=== PATIENT | male | born 1940 | race Caucasian/White ===

== ENCOUNTER 2024-03-19 22:45 | Emergency (ER) | payer MEDICARE, BC, SELFPAY ==
[2024-03-19 23:03] VITALS: BP 112/61; PULSE 55; RESP 16; TEMP 36.6; O2SAT 99
[2024-03-19 23:10] VITALS: BMI 21.7
[2024-03-20 01:33] LABS: Basophils % (Auto) 0 % (0-2.5); Eosinophils # (Auto) 0.1 Thou/mm3 (0.0-0.5); Eosinophils % (Auto) 2 % (0-10); Hematocrit 35.6 % (41.0-53.0); Hemoglobin 12.1 g/dL (13.5-16.0); Immature Granulocytes % (Auto) 0 % (0-0); Immature Granulocytes Auto 0.01 Thou/mm3 (0.00-0.00); Lymphocytes # (Auto) 2.2 Thou/mm3 (1.0-4.8); Lymphocytes % (Auto) 38 % (10-50); Mean Corpuscular Hemoglobin 30.2 pg (25.0-35.0); Mean Corpuscular Volume 89 fL (80-100); Monocytes # (Auto) 0.4 Thou/mm3 (0.0-0.8); Monocytes % (Auto) 7 % (0-12); Neutrophils # (Auto) 3.1 Thou/mm3 (1.8-7.7); Neutrophils % (Auto) 53 % (37-80); Nucleated Red Blood Cell % 0 /100 WBC (0); Platelet Count 164 Thou/mm3 (140-440); RDW Standard Deviation 47.5 fL (35.1-43.9); Red Blood Count 4.01 Miln/mm3 (4.50-5.90); White Blood Count 5.9 Thou/mm3 (3.8-10.6)
[2024-03-20 01:37] VITALS: BP 162/105; PULSE 74; RESP 16; O2SAT 98
[2024-03-20 01:51] LABS: Alanine Aminotransferase < 7 U/L (10-49); Albumin, Serum 3.5 gm/dL (3.4-4.8); Albumin/Globulin Ratio 1.8 (1.2-2.2); Alkaline Phosphatase 55 U/L (46-116); Anion Gap 5 (7-16); Aspartate Amino Transferase 10 U/L (0-34); BUN/Creatinine Ratio 22 Ratio (12-20); Bilirubin,Total 0.7 mg/dL (0.3-1.2); Blood Urea Nitrogen 20 mg/dL (9-23); Calcium 8.8 mg/dL (8.3-10.6); Calcium (Corrected) 9.2 mg/dL (8.5-10.1); Carbon Dioxide 28.5 mMol/L (20.0-31.0); Chloride 115 mMol/L (98-107); Creatinine (Component) 0.9 mg/dL (0.6-1.3); Estimated Creatinine Clearance 63.8 mL/min (>60); Globulin 1.9 gm/dL (2.3-3.5); Glucose 93 mg/dL (74-106); INR 1.1 (0.9-1.3); Osmolality,Calculated 296 (275-295); Partial Thromboplastin Time 29.4 Seconds (22.0-36.0); Potassium 3.9 mMol/L (3.4-5.1); Prothrombin Time 12.4 Seconds (9.0-12.2); Sodium 148 mMol/L (136-145); Total Protein 5.4 gm/dL (5.7-8.2); eGFR > 60 See Note
[2024-03-20] MEDS: TRANEXAMIC ACID INJ 1,000 MG/10 ML VIAL 1000 MG IV (01:53)
--- NOTE | 2024-03-20 02:30 | EDNOTE_ITS ---
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 Orlando. The patient continued to bleed from the site of the procedure even after applying pressure. As per the caregiver the patient is only on aspirin and he stopped taking his Eliquis long time ago. No history of coagulopathy disorder and no history of similar bleeding in the past. Related Data Home Medications ?Medication ?Instructions ?Recorded ?Confirmed carbidopa 25 mg-levodopa 100 mg 2 tab PO TID 11/25/20 03/10/23 tablet sertraline 25 mg tablet 25 mg PO QDAY 12/01/20 03/10/23 sennosides 8.6 mg tablet (senna) 17.2 mg PO QDAY 08/11/21 03/10/23 fludrocortisone 0.1 mg tablet 0.1 mg PO 1XD 03/10/23 03/10/23 Previous Rx's ?Medication ?Instructions ?Recorded quetiapine 50 mg tablet 50 mg PO QDAY #1 tab 08/13/21 apixaban 5 mg tablet (Eliquis) 5 mg PO BID #60 tabs 03/14/23 midodrine 5 mg tablet 5 mg PO TID 30 days #90 tabs 03/14/23 Allergies Allergy/AdvReac Type Severity Reaction Status Date / Time No Known Allergies Allergy Verified 09/14/22 13:08 Review of Systems Review of Systems Systems Reviewed: All systems reviewed, normal except as documented ED Exam Narrative Physical exam: GEN: Sleeping elderly, with a newly dressed scalp wound with blood oozing thro ugh a thick multilayer's gauze. HEENT: NC/AC, oral mucosa moist, neck supple CVS: RRR, S1-S2 present, no murmurs appreciated RESP: CTAB GI: soft,non distended, non tender, NBS MSK: able to move all 4 limbs, no lower extremity edema SKIN: In evaluation of the wound that is approximately 4 cm in length located in the right side of the forehead, with 4 stitches, clean, oozing of blood from the frontal 3 stitches, the blood is bright in color, no hematoma formed was seen. SUTURE WINDER HAND: CN II-XII and Sensation grossly intact. Course Quality Measures none Orders Category Date Time Status CBC Stat Lab 03/20/24 01:17 Completed Comprehensive Metabolic Panel Stat Lab 03/20/24 01:17 Completed PTT [Partial Thromboplastin Time] Stat Lab 03/20/24 01:17 Completed Prothrombin Time with INR Stat Lab 03/20/24 01:17 Completed Tranexamic Acid Inj Med 03/20/24 01:44 Discontinued 1,000 mg IV X1 ONE Vital Signs Vital signs: Vital Signs Temperature 97.8 F 03/19/24 23:03 Pulse Rate 55 L 03/19/24 23:03 Respiratory Rate 16 03/19/24 23:03 Blood Pressure 112/61 03/19/24 23:03 Pulse Oximetry (%) 99 03/19/24 23:03 Oxygen Delivery Method Room Air 03/19/24 23:03 Skin / Abscess / Foreign Body MDM Narrative MDM Narrative:: We applied hemostat because, with pressure, however the patient continued to bleed from the wound. For that reason we repeat applying hemostat gauze in addition to tranexamic acid soaked gauze pressure on the wound. I called Dr. Beltrán who did the procedure for the patient and he recommended to ask the patient to follow-up with him in the architecture drafter to have a second look in the wound. Will keep the patient under observation and then will discharge to follow-up with Dr. Beltrán to evaluate the wound. Dr. Munson's note: I concur with the resident's assessment and procedure to stop the bleeding. Patient will be discharged home. Patient data External records reviewed:: [facility] previous records and Other (specify) Clinical information provided by:: crane man Social determinants that could affect healthcare access:: mental health Patient has the following chronic illnesses:: Parkinson's Adrenal insufficiency Neurocognitive disorder Mood disorder unspecified Hypertension How is presenting disease/condition affected by chronic disease/condition?: uneffected by Evaluation data The following diagnostics were reviewed and interpreted by me:: lab results, radiology exam(s) and EKG tracing(s) Lab and/or radiology exams considered but not ordered:: None Interpretation Summary: Patient has oozing of blood after squamous cell carcinoma removal from the forehead. No major No major coagulopathy was noticed on his labs., Hemoglobin stable Medications / Prescriptions Medications or Prescriptions considered but not ordered:: None Medication administrations:: Medication Administration History Discontinued Medications Tranexamic Acid (Tranexamic Acid Inj 1,000 Mg/10 Ml Vial) 1,000 mg IV X1 ONE Stop: 03/20/24 01:45 Last Admin: 03/20/24 01:53 Dose: 1,000 mg Documented By: NANCY Comments: Per Dr. Munson. Medication was applied to a 4x4 gauze and applied to wound to the top of the head As above topically. Consultations Consultation(s) initiated? (list below): No Diagnosis Skin/Abscess Differential Diagnosis: other (Bleeding wound) Most likely diagnosis given after review of the tests above:: Bleeding wound Admission Indicated Admission indicated?: not indicated Admission Request Was there a request for admission?: No Disposition Plan Disposition Plan: Discharge Discharge Attestation Discharge Attestation: The patient and all family members were given an opportunity to ask questions and understood the discharge instructions. Discharge instructions specifically effects, indications for sooner follow up or return to the emergency department, and the expected course of current diagnosis. Patient condition: Stable Discharge Plan Plan Patient Disposition: HOME (Self Care) Health Concerns: ? Follow-up with Dr. Beltrán to evaluate the wound again ? Avoid straining ? Hold aspirin for today and resume after seeing Dr. Beltrán and your PCP. Prescriptions/Referrals Prescriptions/Med Rec: No Action carbidopa-levodopa 25-100 mg tablet 2 tab PO TID Patient Comments: TAKE PRESCIBED UP TO 15 TABS PER DAYS. sertraline 25 mg Tablet 25 mg PO QDAY sennosides [senna] 8.6 mg Tablet 17.2 mg PO QDAY quetiapine 50 mg tablet 50 mg PO QDAY Qty: 1 0RF fludrocortisone 0.1 mg Tablet 0.1 mg PO 1XD midodrine 5 mg Tablet 5 mg PO TID 30 Days Qty: 90 2RF Eliquis 5 mg tablet 5 mg PO BID Qty: 60 0RF Problem List Clinical Impression: Bleeding from wound, Post-op bleeding Patient/Caregiver Discharge Instructions Print Language: Yoruba Stand Alone Forms: Wanda Award Info., Patient Portal Info Letter
[2024-03-20 03:55] VITALS: BP 178/87; PULSE 61; RESP 16; TEMP 36.6; O2SAT 99
== END 2024-03-20 03:55 | disposition home or self-care (01) ==
LOC: SERX 03-20 03:58
PROVIDERS: Emergency Provider Emergency Medicine
DX: L76.22 Postprocedural hemorrhage of skin and subcutaneous tissue following other procedure (principal); Y83.8 Other surgical procedures as the cause of abnormal reaction of the patient, or of later complication, without mention of misadventure at the time of the procedure
CPT/HCPCS: 36415; 80053; 85025; 85610; 85730; 99283; J3490

== ENCOUNTER 2024-05-21 00:02 | Emergency (ER) | payer MEDICARE, BC, SELFPAY ==
--- NOTE | 2024-05-21 00:06 | PD.EDSOB ---
ED SOB =RME/HPI General Chief Complaint: Shortness of Breath/Dyspnea Stated Complaint: SOB Time Seen by Provider: 05/21/24 00:09 Source: EMS and other (heater installer) Arrival date/time: 05/21/24 00:02 Mode of arrival: EMS Limitations: other (non-verbal secondary to neurological disorders) RME / HPI RME / HPI Narrative: Dr. Dowling?s Main ED Evaluation: An 83-year-old male with a history significant for Parkinson?s disease was brought to the emergency department via ambulance for evaluation of shortness of breath. According to his heater installer, the patient, who is non-verbal at baseline, receives nebulizer treatments every morning as part of his routine care. The heater installer reports that today?s episode of shortness of breath appeared more pronounced than usual, prompting the decision to seek emergency medical attention. She denies any associated symptoms such as fever, chills, chest pain, wheezing, or changes in sputum production. The patient has no known recent exposure to illness. His baseline functional status includes limited mobility and full dependence on caregivers for daily activities. Related Data Home Medications ?Medication ?Instructions ?Recorded ?Confirmed carbidopa 25 mg-levodopa 100 mg 2 tab PO TID 11/25/20 03/10/23 tablet sertraline 25 mg tablet 25 mg PO QDAY 12/01/20 03/10/23 sennosides 8.6 mg tablet (senna) 17.2 mg PO QDAY 08/11/21 03/10/23 fludrocortisone 0.1 mg tablet 0.1 mg PO 1XD 03/10/23 03/10/23 Previous Rx's ?Medication ?Instructions ?Recorded quetiapine 50 mg tablet 50 mg PO QDAY #1 tab 08/13/21 apixaban 5 mg tablet (Eliquis) 5 mg PO BID #60 tabs 03/14/23 midodrine 5 mg tablet 5 mg PO TID 30 days #90 tabs 03/14/23 levofloxacin 500 mg tablet 500 mg PO Q24H #5 tabs 05/21/24 oseltamivir 75 mg capsule (Tamiflu) 75 mg PO Q12H 5 days #10 caps 05/21/24 Allergies Allergy/AdvReac Type Severity Reaction Status Date / Time No Known Allergies Allergy Verified 09/14/22 13:08 Review of Systems Review of Systems ROS Unobtainable: unobtainable due to mental status and unobtainable due to medical condition Past Medical History Past Medical History NEUROLOGIC: Positive Neurological Disorders, Dementia, Parkinson's Disease, Seizures and Subdural Hematoma CARDIAC: Positive Cardiac Disorders, Atrial Fibrillation and Hypertension; Negative Congestive Heart Failure RESPIRATORY: Negative Chronic Obstructive Pulmonary Disease (COPD) GASTROINTESTINAL: Negative Gastrointestinal Disorders GENITOURINARY: Negative Genitourinary Disorders or Renal Disease MUSCULOSKELETAL: Negative Musculoskeletal Disorders ENDOCRINE: Negative Endocrine Disorders, Diabetes Mellitus Type 1 or Diabetes Mellitus Type 2 HEMATOLOGIC: Negative Blood Disorders PSYCHO/SOCIAL: Positive Depression OTHER HISTORY: Positive Falls and Chicken Pox; Negative Hospitalization, Shingles, Blood Transfusions, Blood Transfusion Reaction, Anesthesia Reactions, Chemotherapy or Radiation Therapy Family History FAMILY HISTORY: Positive Family Cancer; Negative Family Cardiac Disorders Surgical History SURGICAL: Positive Tonsillectomy Social History SMOKING STATUS: Smoker, status unknown SUBSTANCE USE: does not use ED Exam Narrative Physical exam: GENERAL APPEARANCE: Non-verbal, tremulous, no acute distress. HEENT: NC, AT. MMM. EOMI, clear conjunctiva, oropharynx clear. NECK: Supple without lymphadenopathy. No stiffness or restricted ROM. HEART: Tachycardic, normal S1/S1, no m/r/g LUNGS: Expiratory wheezing and coarse rhonchi in all lung mcpherson ABDOMEN: Soft, nontender, nondistended with good bowel sounds heard. BACK: No midline C/T/L spine pain or deformity, No CVAT, no obvious deformity. EXTREMITIES: Without cyanosis, clubbing or edema. MUSCULOSKELETAL: FROM of all major joints, no chest tenderness NEUROLOGICAL: Grossly nonfocal. Alert and oriented, moving all 4 extremities. CN not formally tested but appear grossly intact. Observed to ambulate with normal gait. Skin: Warm and dry without any rash. General Limitations: Present other (non-verbal secondary to neurological disorders) Course Course Course Narrative: CXR is ordered for determining etiology of shortness of breath. 0041 Sepsis alert initiated. Orders made at this time are congruent with ED Adult Sepsis Order List. Re-evaluation is to be completed. 0101 Sepsis reassessment performed consisting of lab review, vitals, physical exam including auscultation of heart, lungs, and visual evaluation of capillary refills, mucosal membranes and extremities. Sepsis has been ruled out. 0130 Re-evaluated. Patient is Flu A+ 0200 Re-evaluated. Patient is doing much better on room air with oxygen saturations at 97%. I will prescribe Tamiflu, Levaquin and Albuterol q 6 hours for 3 days. WBC is WNL. Not true sepsis. Quality Measures Current suspected stage: sepsis Possible source: unknown Blood cultures ordered: yes Antibiotic ordered: Yes Pertinent labs: 05/21/24 00:49 Lactic Acid 2.1 H mMol/L (0.4-2.0) Procalcitonin 0.16 ng/ml (0.0-0.49) sepsis Orders Category Date Time Status Bedside COVID-19 Antigen Test NOW Care 05/21/24 00:35 Completed Bedside Influenza A&B Antigen Test NOW Care 05/21/24 00:35 Completed EKG (ED ONLY) *Do not use* NOW Care 05/21/24 00:35 Completed Insert IV NOW Care 05/21/24 00:35 Completed EKG (ED Only) Stat Exams 05/21/24 00:35 Ordered XR chest 1V Stat Exams 05/21/24 00:35 Taken Blood Culture (Lab) Stat Lab 05/21/24 00:55 Received CBC Stat Lab 05/21/24 00:49 Completed CMP [Comprehensive Metabolic Panel] Stat Lab 05/21/24 00:49 Completed Lactate (Lactic Acid) Stat Lab 05/21/24 00:49 Completed Partial Thromboplastin Time Stat Lab 05/21/24 00:49 Completed Procalcitonin Stat Lab 05/21/24 00:49 Completed Prothrombin Time with INR Stat Lab 05/21/24 00:49 Completed RSV [Respiratory Syncytial Virus Ag] Stat Lab 05/21/24 01:10 Completed Troponin I Stat Lab 05/21/24 00:49 Completed ALBUTEROL RT 3ml [Proventil Rt 3ml] Med 05/21/24 00:34 Discontinued 2.5 mg INH X1 ONE MethylPREDNISolone.* [SoluMEDROL Inj] Med 05/21/24 00:49 Discontinued 125 mg IVP X1 ONE Oseltamivir [Tamiflu] Med 05/21/24 01:26 Discontinued 75 mg PO X1 ONE Sodium Chloride 0.9% 1000 ml [Ns] 1,000 ml Med 05/21/24 00:34 Discontinued IV 999 mls/hr Sodium Chloride 0.9% 1000 ml [Ns] 1,000 ml Med 05/21/24 00:49 Discontinued IV 999 mls/hr cefTRIAXone/D5w 1gm IV premix [Rocephin/D5w 1gm IV Med 05/21/24 00:49 Discontinued premix] 50 ml IV X1 metroNIDAZOLE/NS 500 MG IVPB [Flagyl 500 mg IV] Med 05/21/24 00:50 Discontinued 500 mg in 100 ml IV X1 Vital Signs Vital signs: Vital Signs Temperature 100.1 F 05/21/24 00:14 Pulse Rate 103 H 05/21/24 00:14 Respiratory Rate 20 05/21/24 00:14 Blood Pressure 135/69 H 05/21/24 00:14 Pulse Oximetry (%) 96 05/21/24 00:14 Oxygen Delivery Method Nasal Cannula 05/21/24 00:14 Oxygen Flow Rate 6 05/21/24 00:14 Procedures -ED Procedure Comment 05/21/2024 0247: Interpreted by me, limited due to movement artifact secondary to parkinson's, normal sinus rhythm at 88 bpm, normal intervals, normal axis, no acute ST or T wave changes. Shortness of Breath / Dyspnea MDM Narrative MDM Narrative:: Mr. Rhoades has advanced Parkinson's who presents with fever and shortness of breath. Patient is otherwise nontoxic appearing, However limited history given he is not verbal which is baseline per the caretakers.they expressed concern as he has been having increasing respiratory congestion and fevers therefore sent him to the emergency department. Patient otherwise shows no signs of tachypnea or hypoxia on room air. He does have some coarse rhonchi and end expiratory wheezes on exam therefore he was started on steroids and nebulized bronchodilators given his home use of bronchodilators and possible risk of aspiration pneumonia. Chest x-ray initial troponin shows some perihilar fullness including the right middle lobe which could be an early aspiration, however when compared to previous x-ray there shows no changes (compared with September 29, 2023). Laboratory testing is unremarkable and significant for normal white blood cell count, normal lactic acid, and normal procalcitonin. Swabs however was significant for positive influenza A status. He is bedbound I do not suspect he has epidemiologic contact criteria as suggestive of HPAI. As a result we will start him on Tamiflu and have him receive his nebulized bronchodilators every 6 hours at home with his caretakers. Given his risk with his Parkinson's still for aspiration pneumonia will complete covering empirically with Levaquin. As he is stable vital signs, is nontoxic-appearing, has good and viable caretakers, he is appropriate for outpatient management and close follow-up with his primary care physician Scribe Attestation: I, Kareem Giron, am scribing for and in the presence of Dr. Dowling. Provider Notation: Although this document has been carefully reviewed, there may still be some phonetic and other typographical errors. These errors are purely grammatical due to imperfections in the software program and should not be construed in any way to compromise the substance of the patient's medical care during this visit. Patient data External records reviewed:: [facility] previous records and EMS form Clinical information provided by:: patient and EMS Social determinants that could affect healthcare access:: none Patient has the following chronic illnesses:: See PMH How is presenting disease/condition affected by chronic disease/condition?: uneffected by Evaluation data The following diagnostics were reviewed and interpreted by me:: lab results, radiology exam(s) and EKG tracing(s) Lab and/or radiology exams considered but not ordered:: n/a Interpretation Summary: See narrative Medications / Prescriptions Medications or Prescriptions considered but not ordered:: n/a Medication administrations:: Medication Administration History Discontinued Medications Albuterol (Albuterol Rt 2.5 Mg/3 Ml Nebu) 2.5 mg INH X1 ONE Stop: 05/21/24 00:35 Last Admin: 05/21/24 02:20 Dose: 2.5 mg Documented By: Sodium Chloride (Ns) 1,000 mls @ 999 mls/hr IV .Q1H1M ONE Stop: 05/21/24 01:34 Last Infusion: 05/21/24 02:14 Dose: Infused Documented By: Admin: 05/21/24 00:54 Dose: 999 mls/hr Documented By: EF Sodium Chloride (Ns) 1,000 mls @ 999 mls/hr IV .Q1H1M ONE Stop: 05/21/24 01:49 Last Infusion: 05/21/24 03:30 Dose: Infused Documented By: Admin: 05/21/24 02:01 Dose: 999 mls/hr Documented By: EF Ceftriaxone Sodium/Dextrose (Rocephin/D5w 1gm Iv Premix) 50 mls @ 100 mls/hr IV X1 ONE Stop: 05/21/24 01:18 Last Infusion: 05/21/24 01:34 Dose: Infused Documented By: Admin: 05/21/24 00:58 Dose: 100 mls/hr Documented By: EF Metronidazole (Flagyl 500 Mg Iv) 500 mg in 100 mls @ 200 mls/hr IV X1 ONE Stop: 05/21/24 01:19 Last Infusion: 05/21/24 02:07 Dose: Infused Documented By: Admin: 05/21/24 01:27 Dose: 200 mls/hr Documented By: EF Methylprednisolone Sodium Succinate (Methylprednisolone Sod Succ 62.5 Mg/Ml 2ml Vial) 125 mg IVP X1 ONE Stop: 05/21/24 00:50 Last Admin: 05/21/24 00:59 Dose: 125 mg Documented By: EF Oseltamivir Phosphate (Oseltamivir 75 Mg Capsule) 75 mg PO X1 ONE Stop: 05/21/24 01:27 Last Admin: 05/21/24 02:01 Dose: 75 mg Documented By: EF as above, if any Consultations Consultation(s) initiated? (list below): No Diagnosis Shortness of Breath Differential Diagnosis: acute exacerbation of chronic obstructive airways disease, asthma with exacerbation and other (Aspiration pneumonia, Sepsis) Most likely diagnosis given after review of the tests above:: Influenza A, RAD (reactive airway disease), Parkinson's disease dementia Admission Indicated Admission indicated?: not indicated Admission Request Was there a request for admission?: No Disposition Plan Disposition Plan: Discharge Discharge Attestation Discharge Attestation: The patient and all family members were given an opportunity to ask questions and understood the discharge instructions. Discharge instructions specifically effects, indications for sooner follow up or return to the emergency department, and the expected course of current diagnosis. Patient condition: Stable Discharge Plan Plan Patient Disposition: HOME (Self Care) Prescriptions/Referrals Prescriptions/Med Rec: New oseltamivir [Tamiflu] 75 mg capsule 75 mg PO Q12H 5 Days Qty: 10 0RF levofloxacin 500 mg tablet 500 mg PO Q24H Qty: 5 0RF No Action carbidopa-levodopa 25-100 mg tablet 2 tab PO TID Patient Comments: TAKE PRESCIBED UP TO 15 TABS PER DAYS. sertraline 25 mg Tablet 25 mg PO QDAY sennosides [senna] 8.6 mg Tablet 17.2 mg PO QDAY quetiapine 50 mg tablet 50 mg PO QDAY Qty: 1 0RF fludrocortisone 0.1 mg Tablet 0.1 mg PO 1XD midodrine 5 mg Tablet 5 mg PO TID 30 Days Qty: 90 2RF Eliquis 5 mg tablet 5 mg PO BID Qty: 60 0RF Referrals: No Primary/Family,Physician [Primary Care Provider] - In 1 week Problem List Clinical Impression: Influenza A, RAD (reactive airway disease), Parkinson's disease dementia Patient/Caregiver Discharge Instructions Education Materials: ED Influenza (Adult), ED URI, Viral W/ Wheezing (Adult) Additional Instructions: Use your nebulizer 1 treatment every 6 hours while awake for the next 3 days. Follow-up with your primary care doctor in 2 to 3 days for recheck. You can return to the emergency department sooner symptoms worsen or if you notice any new, concerning issues. Print Language: Maltese Stand Alone Forms: Wanda Award Info., Patient Portal Info Letter
[2024-05-21 00:14] VITALS: BP 135/69; PULSE 103; RESP 20; TEMP 37.8; O2SAT 96
[2024-05-21 00:24] VITALS: PULSE 105; RESP 20; O2SAT 94
--- NOTE | 2024-05-21 00:35 | XR_ITS ---
Examination: AP chest single view Technique one AP portable upright chest single view Exam date and time: May 21, 2024 at 0042 hrs. Comparison the 2023 Indications: Shortness of breath today. Findings: Prominent opacity left base retrocardiac obscuring detail left hemidiaphragm Moderate vascular congestion No siria pulmonary edema Significant osteopenia Impression: Significant parenchymal disease left base, recommend lateral chest view follow-up
[2024-05-21 00:42] VITALS: TEMP 38.4
[2024-05-21 00:48] VITALS: BMI 21.8
[2024-05-21] MEDS: SODIUM CHLORIDE 0.9% 1000 ML 1,000 ML 999 ML IV ×2 (00:54→02:01)
[2024-05-21] MEDS: cefTRIAXone/D5w 1gm IV premix 50 ML IV (00:58)
[2024-05-21] MEDS: MethylPREDNISolone SOD SUCC 62.5 MG/ML 2ML VIAL 125 MG IVP (00:59)
[2024-05-21 01:07] LABS: Lactate (Lactic Acid) 2.1 mMol/L (0.4-2.0)
[2024-05-21 01:10] LABS: Basophils % (Auto) 0 % (0-2.5); Eosinophils # (Auto) 0.1 Thou/mm3 (0.0-0.5); Eosinophils % (Auto) 1 % (0-10); Hematocrit 38.7 % (41.0-53.0); Hemoglobin 12.9 g/dL (13.5-16.0); Immature Granulocytes % (Auto) 0 % (0-0); Immature Granulocytes Auto 0.03 Thou/mm3 (0.00-0.00); Lymphocytes # (Auto) 1.1 Thou/mm3 (1.0-4.8); Lymphocytes % (Auto) 13 % (10-50); Mean Corpuscular HGB Conc 33.3 g/dl (31.0-37.0); Mean Corpuscular Hemoglobin 30.9 pg (25.0-35.0); Mean Corpuscular Volume 93 fL (80-100); Monocytes # (Auto) 0.4 Thou/mm3 (0.0-0.8); Monocytes % (Auto) 4 % (0-12); Neutrophils # (Auto) 7.5 Thou/mm3 (1.8-7.7); Neutrophils % (Auto) 82 % (37-80); Nucleated Red Blood Cell % 0 /100 WBC (0); Platelet Count 177 Thou/mm3 (140-440); RDW Standard Deviation 49.4 fL (35.1-43.9); Red Blood Count 4.18 Miln/mm3 (4.50-5.90); White Blood Count 9.1 Thou/mm3 (3.8-10.6)
[2024-05-21 01:21] LABS: INR 1.1 (0.9-1.3); Partial Thromboplastin Time 27.6 Seconds (22.0-36.0); Prothrombin Time 11.6 Seconds (9.0-12.2)
[2024-05-21] MEDS: metroNIDAZOLE/NS 500 MG IVPB 500 MG/100 ML BAG 200 MG IV (01:27)
[2024-05-21 01:31] LABS: Alanine Aminotransferase < 7 U/L (10-49); Albumin, Serum 3.9 gm/dL (3.4-4.8); Albumin/Globulin Ratio 1.9 (1.2-2.2); Alkaline Phosphatase 75 U/L (46-116); Anion Gap 8 (7-16); Aspartate Amino Transferase 19 U/L (0-34); BUN/Creatinine Ratio 20 Ratio (12-20); Bilirubin,Total 0.6 mg/dL (0.3-1.2); Blood Urea Nitrogen 18 mg/dL (9-23); Calcium 9.1 mg/dL (8.3-10.6); Calcium (Corrected) 9.2 mg/dL (8.5-10.1); Carbon Dioxide 27.5 mMol/L (20.0-31.0); Chloride 114 mMol/L (98-107); Creatinine (Component) 0.9 mg/dL (0.6-1.3); Estimated Creatinine Clearance 67.8 mL/min (>60); Globulin 2.1 gm/dL (2.3-3.5); Glucose 117 mg/dL (74-106); Osmolality,Calculated 299 (275-295); Potassium 4.3 mMol/L (3.4-5.1); Sodium 149 mMol/L (136-145); Troponin I < 0.020 ng/mL (0.0-0.045); eGFR > 60 See Note
[2024-05-21 01:34] LABS: Procalcitonin 0.16 ng/ml (0.0-0.49)
[2024-05-21] MEDS: OSELTAMIVIR 75 MG CAPSULE PO (02:01)
[2024-05-21 02:20] VITALS: PULSE 91
[2024-05-21] MEDS: ALBUTEROL RT 2.5 MG/3 ML NEBU INH (02:20)
[2024-05-21 02:26] VITALS: PULSE 96; RESP 21; O2SAT 100
[2024-05-21 02:44] LABS: Respiratory Syncytial Virus Ag Negative (Negative)
[2024-05-21 03:36] VITALS: BP 155/71; PULSE 106; RESP 16; TEMP 38.3; O2SAT 96
[2024-05-21 04:01] LABS: Reflex Lactate? Y
== END 2024-05-21 03:36 | disposition home or self-care (01) ==
PROVIDERS: Emergency Provider Emergency Medicine
DX: J10.1 Influenza due to other identified influenza virus with other respiratory manifestations (principal); J45.909 Unspecified asthma, uncomplicated; G20.A1 Parkinson's disease without dyskinesia, without mention of fluctuations; F02.83 Dementia in other diseases classified elsewhere, unspecified severity, with mood disturbance; I10 Essential (primary) hypertension; I48.91 Unspecified atrial fibrillation; Z79.01 Long term (current) use of anticoagulants
CPT/HCPCS: 36415; 71045; 80053; 81001; 83605; 84145; 84484; 85025; 85610; 85730; 87040; 87400; 87634; 87811; 93005; 94640; 96361; 96365; 96367; 99284; J0696; J2919; J3490; J7030; A9270; J1836

== ENCOUNTER 2024-07-07 14:22 | Emergency (ER) | payer MEDICARE, BC, SELFPAY ==
[2024-07-07] VITALS (10 sets, daily range): BP systolic 129–175; BP diastolic 63–104; PULSE 72–80; RESP 14–18; TEMP 36.4–37.1; O2SAT 96–100; BMI 20.3
--- NOTE | 2024-07-07 14:59 | XR_ITS ---
Examination: AP chest single view Technique one AP portable semiupright chest single view Exam date and time: 8025 1503 hrs. Comparison May 21, 2024 Indications: Shortness of breath today. Findings: Left perihilar significant left basilar pneumonia Mild prominence left ventricle The osseous structures are intact Impression: Significant left lung pneumonia
--- NOTE | 2024-07-07 14:59 | EKG_ITS ---
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
--- NOTE | 2024-07-07 15:01 | PD.EDADULT ---
ED General RME/HPI General Chief complaint: Altered Mental Status Stated complaint: ALTERED MORE THAN NORMAL PER HOME CARE STAFF Time Seen by Provider: 07/07/24 14:52 Arrival date/time: 07/07/24 14:22 RME / HPI RME / HPI narrative: 84-year-old male patient was brought in by EMS for evaluation regarding altered more than usual. According to the caregiver patient is less verbal, as baseline, today after drinking the first dose of doxycycline for sacral ulcer prescribed by senior accounts payable specialist yesterday, patient developed sudden onset of less responsiveness, and eye rolling up. Lasting for few seconds. Patient was not coughing no guarding no shortness of breath. No fever was noted. No other complaints noted. Patient was recently diagnosed with stage II sacral ulcer. No medication was given prior to arrival. Related Data Home Medications ?Medication ?Instructions ?Recorded ?Confirmed carbidopa 25 mg-levodopa 100 mg 2 tab PO TID 11/25/20 03/10/23 tablet sertraline 25 mg tablet 25 mg PO QDAY 12/01/20 03/10/23 sennosides 8.6 mg tablet (senna) 17.2 mg PO QDAY 08/11/21 03/10/23 fludrocortisone 0.1 mg tablet 0.1 mg PO 1XD 03/10/23 03/10/23 Previous Rx's ?Medication ?Instructions ?Recorded quetiapine 50 mg tablet 50 mg PO QDAY #1 tab 08/13/21 apixaban 5 mg tablet (Eliquis) 5 mg PO BID #60 tabs 03/14/23 midodrine 5 mg tablet 5 mg PO TID 30 days #90 tabs 03/14/23 levofloxacin 500 mg tablet 500 mg PO Q24H #5 tabs 05/21/24 cefuroxime axetil 500 mg tablet 500 mg PO BID #14 tabs 07/07/24 Allergies Allergy/AdvReac Type Severity Reaction Status Date / Time No Known Allergies Allergy Verified 09/14/22 13:08 Review of Systems Review of Systems Narrative Review of Systems: Review of system reviewed and within normal limits except mentioned in HPI ED Exam Narrative Physical exam: VITAL SIGNS: Reviewed. GENERAL APPEARANCE: Alert and good eye contact does not follows commands, no acute distress, HEAD AND FACE: Non-traumatic. ENT: PERRL, pink conjunctivitis, eyelid no trauma, Mucous membrane moist. NECK: Supple, nontender, no nuchal rigidity. CHEST: No tenderness, no crepitus, no paradoxical movement, no retractions. LUNGS: Clear, well ventilated, symmetric, no rales, no wheezing, no ronchi, no stridor, good breath sounds bilaterally. HEART: Regular rate, regular rhythm, no murmur, no gallops. ABDOMEN: Soft, positive bowel sounds, nondistended, no guarding, nontender, no rebound, no masses, RECTAL: Stage II sacral ulcer, no drainage noted GENITAL: Deferred. NEUROLOGICAL: Gross motor function intact sensory function intact, Appropriate for age. MUSCULOSKELETAL: low back nontender, full range of motion. EXTREMITIES: Nontender, full range of motion. SKIN: Color pink, dry, no rash, no lacerations, no abrasions, no contusions. LYMPHATICS: Deferred. Course Quality Measures none Orders Category Date Time Status EKG (ED ONLY) *Do not use* NOW Care 07/07/24 14:59 Completed EKG (ED Only) Stat Exams 07/07/24 14:59 Draft XR chest 1V Stat Exams 07/07/24 14:59 Taken B-Type Natriuretic Peptide Stat Lab 07/07/24 16:05 Completed Blood Culture (Lab) Stat Lab 07/07/24 16:05 Received CBC Stat Lab 07/07/24 16:05 Completed Comprehensive Metabolic Panel Stat Lab 07/07/24 16:05 Completed Lactate (Lactic Acid) Stat Lab 07/07/24 15:51 Completed Partial Thromboplastin Time Stat Lab 07/07/24 16:05 Completed Procalcitonin Stat Lab 07/07/24 16:05 Completed Troponin I Stat Lab 07/07/24 16:05 Completed UA, C/S IF [Urinalysis, C/S if Indicated] Stat Lab 07/07/24 18:10 Completed Urine Culture Stat Lab 07/07/24 18:10 Received Sodium Chloride 0.9% 1000 ml [Ns] 1,000 ml Med 07/07/24 15:00 Discontinued IV 999 mls/hr cefTRIAXone [Rocephin] 1,000 mg Med 07/07/24 18:49 Active SODIUM CHLORIDE 0.9% (Popper) [Ns 0.9% (P)] 50 ml IV X1 Vital Signs Vital signs: Vital Signs Pulse Rate 74 07/07/24 14:30 Respiratory Rate 18 07/07/24 14:30 Blood Pressure 129/77 07/07/24 14:30 Pulse Oximetry (%) 98 07/07/24 14:30 Oxygen Delivery Method Room Air 07/07/24 14:30 MDM Patient data External records reviewed:: None 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 Social determinants that could affect healthcare access:: none (None) Patient has the following chronic illnesses:: History of Parkinson's, A-fib, hypertension, chronic kidney disease, dementia How is presenting disease/condition affected by chronic disease/condition?: exacerbated by Evaluation data The following diagnostics were reviewed and interpreted by me:: lab results, radiology exam(s) and EKG tracing(s) Lab and/or radiology exams considered but not ordered:: None Interpretation Summary: EKG as interpreted by me showed atrial fibrillation, ventricular rate of 68 bpm, no ST segment elevation depression. Laboratory workup significant for UTI. The rest of the labs unremarkable. Chest x-ray showed no acute pathology noted to infiltrates no pneumothorax thorax noted. Medications Medications considered but not ordered:: None Medication administrations:: Medication Administration History Ceftriaxone Sodium 1,000 mg/ (Sodium Chloride) 50 mls @ 100 mls/hr IV X1 ONE Stop: 07/07/24 19:18 Discontinued Medications Sodium Chloride (Ns) 1,000 mls @ 999 mls/hr IV .Q1H1M ONE Stop: 07/07/24 16:00 Last Admin: 07/07/24 16:27 Dose: 999 mls/hr Documented By: IV fluids, IV ceftriaxone, Consultations Consultation(s) initiated? (list below): No Diagnosis Differential Diagnosis ED Complaint MDM: Adverse effect from medication, altered mental status, UTI, sacral ulcers Most likely diagnosis given after review of the tests above:: Adverse effect from medications, UTI, sacral ulcer Admission Indicated Admission indicated?: not indicated Explain why admission is indicated or not indicated:: Stable Admission Request Was there a request for admission?: No Disposition Plan Disposition Plan: Discharge Discharge Attestation Discharge Attestation: The patient and caregiver was an opportunity to ask questions and understood the discharge instructions. Discharge instructions specifically effects, indications for sooner follow up or return to the emergency department, and the expected course of current diagnosis. Patient condition: Stable Medical Decision Making MDM Narrative MDM Narrative: 84-year-old male patient was brought in by EMS for evaluation regarding altered more than usual. According to the caregiver patient is less verbal, as baseline, today after drinking the first dose of doxycycline for sacral ulcer prescribed by senior accounts payable specialist yesterday, patient developed sudden onset of less responsiveness, and eye rolling up. Lasting for few seconds. Patient was not coughing no guarding no shortness of breath. No fever was noted. No other complaints noted. Patient was recently diagnosed with stage II sacral ulcer. No medication was given prior to arrival. Patient received IV fluids, IV ceftriaxone, for UTI. On reevaluation patient was back to his baseline, no recurrence of altered mental status in the emergency room. Caregiver was advised not to give the doxycycline and cleared by senior accounts payable specialist. Patient appears nontoxic and hemodynamically stable. Patient discharged home and instructed to follow-up with primary care provider in 24 to 48 hours. Instructed to return to the emergency department immediately if worsening of symptoms Differential Diagnosis Differential Diagnosis: Adverse effect from medication, altered mental status, UTI, sacral ulcers Lab Data 07/07/24 16:05 07/07/24 16:05 Labs: Lab Results 07/07/24 07/07/24 07/07/24 Range/Units 15:51 16:05 18:10 WBC 7.1 (3.8-10.6) Thou/mm3 RBC 3.96 L (4.50-5.90) Miln/mm3 Hgb 12.0 L (13.5-16.0) g/dL Hct 37.1 L (41.0-53.0) % MCV 94 (80-100) fL MCH 30.3 (25.0-35.0) pg MCHC 32.3 (31.0-37.0) g/dl RDW Std Deviation 46.9 H (35.1-43.9) fL Plt Count 189 (140-440) Thou/mm3 Neut % (Auto) 73 (37-80) % Lymph % (Auto) 20 (10-50) % [place] % (Auto) 6 (0-12) % Eos % (Auto) 1 (0-10) % Baso % (Auto) 0 (0-2.5) % Neut # (Auto) 5.2 (1.8-7.7) Thou/mm3 Lymph # (Auto) 1.4 (1.0-4.8) Thou/mm3 [place] # (Auto) 0.4 (0.0-0.8) Thou/mm3 Eos # (Auto) 0.1 (0.0-0.5) Thou/mm3 Baso # (Auto) 0.0 (0.0-0.2) Thou/mm3 Immature Gran # (Auto) 0.02 H (0.00-0.00) Thou/mm3 Absolute Nucleated RBC 0.00 (0.00-0.00) Thou/mm3 Immature Gran % 0 (0-0) % Nucleated RBC % 0 (0) /100 WBC APTT 31.4 (22.0-36.0) Seconds Sodium 147 H (136-145) mMol/L Potassium 4.4 (3.4-5.1) mMol/L Chloride 112 H (98-107) mMol/L Carbon Dioxide 28.2 (20.0-31.0) mMol/L Anion Gap 7 (7-16) BUN 15 (9-23) mg/dL Creatinine 0.8 (0.6-1.3) mg/dL Estim Creat Clear Calc 66.1 (>60) mL/min eGFR > 60 (60 - ) See Note BUN/Creatinine Ratio 19 (12-20) Ratio Glucose 145 H (74-106) mg/dL Calculated Osmolality 296 H (275-295) Lactic Acid 1.0 (0.4-2.0) mMol/L Calcium 8.9 (8.3-10.6) mg/dL Corrected Calcium 9.4 (8.5-10.1) mg/dL Total Bilirubin 1.2 (0.3-1.2) mg/dL AST 10 (0-34) U/L ALT < 7 L (10-49) U/L Alkaline Phosphatase 66 (46-116) U/L Troponin I < 0.020 (0.0-0.045) ng/mL B-Natriuretic Peptide 337 H (0-100) pg/mL Total Protein 5.6 L (5.7-8.2) gm/dL Albumin 3.4 (3.4-4.8) gm/dL Globulin 2.2 L (2.3-3.5) gm/dL Albumin/Globulin Ratio 1.5 (1.2-2.2) Procalcitonin 0.13 (0.0-0.49) ng/ml Ur Collection Type Catheter Urine Color Yellow (Lt Yel-Yel) Urine Clarity Hazy (Clear/Hazy) Urine pH 5.5 (5.0-7.0) Ur Specific [place] 1.027 (1.001-1.035) Urine Protein Trace (Neg - Trace) Urine Glucose (UA) Negative (Negative) Urine Ketones Negative (Negative) Urine Blood 2+ A (Negative) Urine Nitrite Negative (Negative) Urine Bilirubin Negative (Negative) Urine Urobilinogen (Auto) Negative (0.0-1.0) mg/dL Ur Leukocyte Esterase Negative (Negative) Urine RBC 161 H (0-3) /hpf Urine WBC 53 H (0-5) /hpf Ur Squamous Epith Cells < 1 (0-5) /hpf Amorphous Crystals Present A (Absent) Urine Bacteria Rare (None) Ur Culture Indicated? Yes Discharge Plan Plan Patient Disposition: HOME (Self Care) Disposition Comment: stable Prescriptions/Referrals Prescriptions/Med Rec: New cefuroxime axetil 500 mg tablet 500 mg PO BID Qty: 14 0RF No Action carbidopa-levodopa 25-100 mg tablet 2 tab PO TID Patient Comments: TAKE PRESCIBED UP TO 15 TABS PER DAYS. sertraline 25 mg Tablet 25 mg PO QDAY sennosides [senna] 8.6 mg Tablet 17.2 mg PO QDAY quetiapine 50 mg tablet 50 mg PO QDAY Qty: 1 0RF fludrocortisone 0.1 mg Tablet 0.1 mg PO 1XD midodrine 5 mg Tablet 5 mg PO TID 30 Days Qty: 90 2RF Eliquis 5 mg tablet 5 mg PO BID Qty: 60 0RF levofloxacin 500 mg tablet 500 mg PO Q24H Qty: 5 0RF Referrals: Kely Shaver MD [Primary Care Provider] - In 1 week Problem List Clinical Impression: UTI (urinary tract infection), Adverse effect of antibacterial drug Patient/Caregiver Discharge Instructions Discharge Activity: activity as tolerated Education Materials: ED Drug Reaction, Other Additional Instructions: Thank you for the opportunity for serving you today. You are stable for discharged . You are advised to: Follow-up with your PCP in 1 to 2 days Return to ED for worsening of symptoms Increase oral fluids Take medication as prescribed Continue turning the patient every hour to prevent the sacral pressure ulcer to get worse. Stop taking doxycycline until you talk to your senior accounts payable specialist MD. Print Language: Romanian Stand Alone Forms: Wanda Award Info., Patient Portal Info Letter PA/HEDIS NURSE Supervising Physician PA/HEDIS NURSE Supervising Physician: MD Teri
[2024-07-07 16:19] LABS: Basophils % (Auto) 0 % (0-2.5); Eosinophils # (Auto) 0.1 Thou/mm3 (0.0-0.5); Eosinophils % (Auto) 1 % (0-10); Hematocrit 37.1 % (41.0-53.0); Immature Granulocytes % (Auto) 0 % (0-0); Immature Granulocytes Auto 0.02 Thou/mm3 (0.00-0.00); Lymphocytes # (Auto) 1.4 Thou/mm3 (1.0-4.8); Lymphocytes % (Auto) 20 % (10-50); Mean Corpuscular HGB Conc 32.3 g/dl (31.0-37.0); Mean Corpuscular Hemoglobin 30.3 pg (25.0-35.0); Mean Corpuscular Volume 94 fL (80-100); Monocytes # (Auto) 0.4 Thou/mm3 (0.0-0.8); Monocytes % (Auto) 6 % (0-12); Neutrophils # (Auto) 5.2 Thou/mm3 (1.8-7.7); Neutrophils % (Auto) 73 % (37-80); Nucleated Red Blood Cell % 0 /100 WBC (0); Platelet Count 189 Thou/mm3 (140-440); RDW Standard Deviation 46.9 fL (35.1-43.9); Red Blood Count 3.96 Miln/mm3 (4.50-5.90); White Blood Count 7.1 Thou/mm3 (3.8-10.6)
[2024-07-07] MEDS: SODIUM CHLORIDE 0.9% 1000 ML 1,000 ML 999 ML IV (16:27)
[2024-07-07 16:30] LABS: Partial Thromboplastin Time 31.4 Seconds (22.0-36.0)
[2024-07-07 16:43] LABS: B-Type Natriuretic Peptide 337 pg/mL (0-100)
[2024-07-07 16:46] LABS: Alanine Aminotransferase < 7 U/L (10-49); Albumin, Serum 3.4 gm/dL (3.4-4.8); Albumin/Globulin Ratio 1.5 (1.2-2.2); Alkaline Phosphatase 66 U/L (46-116); Anion Gap 7 (7-16); Aspartate Amino Transferase 10 U/L (0-34); BUN/Creatinine Ratio 19 Ratio (12-20); Bilirubin,Total 1.2 mg/dL (0.3-1.2); Blood Urea Nitrogen 15 mg/dL (9-23); Calcium 8.9 mg/dL (8.3-10.6); Calcium (Corrected) 9.4 mg/dL (8.5-10.1); Carbon Dioxide 28.2 mMol/L (20.0-31.0); Chloride 112 mMol/L (98-107); Creatinine (Component) 0.8 mg/dL (0.6-1.3); Estimated Creatinine Clearance 66.1 mL/min (>60); Globulin 2.2 gm/dL (2.3-3.5); Glucose 145 mg/dL (74-106); Osmolality,Calculated 296 (275-295); Potassium 4.4 mMol/L (3.4-5.1); Procalcitonin 0.13 ng/ml (0.0-0.49); Sodium 147 mMol/L (136-145); Total Protein 5.6 gm/dL (5.7-8.2); Troponin I < 0.020 ng/mL (0.0-0.045); eGFR > 60 See Note
[2024-07-07 18:15] LABS: Collection Type, Urine Catheter
[2024-07-07 18:20] LABS: Amorphous Crystals,Urine Present (Absent); Bacteria,Urine Rare; Bilirubin,Urine Negative (Negative); Blood,Urine 2+ (Negative); Color,Urine Yellow (Lt Yel-Yel); Glucose, Urine Negative (Negative); Ketones,Urine Negative (Negative); Leukocyte Esterase,Urine Negative (Negative); Nitrite,Urine Negative (Negative); PH,Urine 5.5 (5.0-7.0); Protein,Urine Trace (Neg - Trace); RBC,Urine 161 /hpf (0-3); Specific Gravity,Urine 1.027 (1.001-1.035); Squamous Epithelial Cell,Urine < 1 /hpf (0-5); Urobilinogen,Urine Negative mg/dL (0.0-1.0); WBC,Urine 53 /hpf (0-5)
[2024-07-07 18:32] LABS: Clarity,Urine Hazy (Clear/Hazy); Culture Indicated,Urine Yes
[2024-07-07] MEDS: cefTRIAXone 1,000 MG in SODIUM CHLORIDE 0.9% (Popper) 50 ML 100 MG IV (19:14)
== END 2024-07-07 21:11 | disposition home or self-care (01) ==
PROVIDERS: Nurse Practitioner Family; Emergency Provider Emergency Medicine; PCP Internal Medicine Hospice and Palliative Medicine
DX: N39.0 Urinary tract infection, site not specified (principal); R41.82 Altered mental status, unspecified; T36.4X5A Adverse effect of tetracyclines, initial encounter; L89.152 Pressure ulcer of sacral region, stage 2; I12.9 Hypertensive chronic kidney disease with stage 1 through stage 4 chronic kidney disease, or unspecified chronic kidney disease; N18.9 Chronic kidney disease, unspecified; G20.A1 Parkinson's disease without dyskinesia, without mention of fluctuations; I48.91 Unspecified atrial fibrillation; F02.80 Dementia in other diseases classified elsewhere, unspecified severity, without behavioral disturbance, psychotic disturbance, mood disturbance, and anxiety
CPT/HCPCS: 36415; 71045; 80053; 81001; 83605; 83880; 84145; 84484; 85025; 85730; 87040; 87086; 93005; 96360; 99284; J0696; J7030; J7050